=== PATIENT | female | born 1970 | race Caucasian/White ===

== ENCOUNTER 2024-05-09 13:27 | Outpatient (CLI) | payer OTHER, SELFPAY ==
--- NOTE | 2024-05-09 13:35 | MR_ITS ---
WS: [id number] MRI LUMBAR SPINE NONCONTRAST HISTORY: Low back pain, bilateral lower extremity pain for 1 year. COMPARISON: None available. TECHNIQUE: Sagittal and axial multisequence imaging is submitted. Advanced cervical degenerative spondylosis. C5 retrolisthesis by 3 mm encroaching upon the ventral ce rvical cord. L4 anterolisthesis by 7.7 mm. Severe degenerative disc space narrowing at L4-5. There is reactive mar row edema along the L4 and L5 adjacent endplates. Small amount of edema in the posterior elements of L4 and L5. Cannot confirm pars defects by MRI. Remaining disc spaces are mildly narrowed and desiccated. Conus terminates normally at L1-2 disc level. L1-L2: Mild annular disc bulging. LEFT foraminal disc protrusion. No significant stenosis. L2-L3: Mild annular disc bulge encroaching upon the ventral thecal sac and subarticular recesses. Dis c contacts the traversing L3 nerve roots. Shallow RIGHT foraminal disc protrusion. Mild central, bila teral subarticular recess and RIGHT foraminal stenosis. L3-L4: Diffuse annular disc bulging encroaching upon the ventral thecal sac and subarticular recesses . Mild ligamentum flavum and facet arthritis. Disc asymmetrically bulges to the RIGHT with mild RIGHT foraminal stenosis. Mild central and subarticular recess encroachment. L4-L5: Severe central stenosis due to the anterolisthesis and disc bulging and osteophytes. Complete effacement of CSF with distortion and elongation of the exiting nerve roots. Severe central, bilatera l subarticular recess and foraminal stenosis. The nerve roots in the thecal sac at this level are analia ng distorted and are edematous. L5-S1: Mild annular disc bulging. Bilateral foraminal annular fissures. Very slight disc encroachment upon the S1 nerve roots. Mild RIGHT foraminal narrowing due to disc and osteophyte. MR/MR lumbar spine wo con* [id number] IMPRESSION: 1. Grade 1 anterolisthesis of L4 by 7.7 mm. 2. L4-5: Severe central, bilateral subarticular recess and foraminal stenosis. Nerve roots are at this level are being distorted and elongated. 3. Severe degenerative disc space narrowing at L4-5 with marrow edema. 4. L3-4: Mild central, bilateral subarticular recess and RIGHT foraminal steno sis. 5. L2-3: Mild central, bilateral subarticular recess and RIGHT foraminal steno sis. Shallow RIGHT foraminal disc protrusion.
== END 2024-05-09 13:28 | disposition home or self-care (01) ==
LOC: RAD 13:30
PROVIDERS: PCP General Practice; Visit Provider General Practice
DX: M54.17 Radiculopathy, lumbosacral region (principal); M47.892 Other spondylosis, cervical region; M43.12 Spondylolisthesis, cervical region; M99.63 Osseous and subluxation stenosis of intervertebral foramina of lumbar region
CPT/HCPCS: 72148